=== PATIENT | female | born 1995 | race African-American/Black ===

== ENCOUNTER 2017-06-26 18:17 | Emergency (ER) | payer OTHER ==
[2017-06-26 18:42] VITALS: RESP 18
--- NOTE | 2017-06-26 20:14 | ED ---
URI HPI - General Chief Complaint: Upper Respiratory Infection Stated Complaint: FLU SYMTOMS Time Seen by Provider: 06/26/17 20:06 Source: patient, RN notes reviewed Mode of arrival: ambulatory Limitations: no limitations - History of Present Illness Initial Comments: This is a 22-year-old female who presents to the emergency department with chief complaint of flu symptoms. Patient states that she has been sick for the past 3 days. She states that she has had a runny nose, congestion and cough. She states that she has had fevers for the past 2 days. She denies any sick contacts. She states that she has a history of asthma and has been using her albuterol inhaler at home. She denies any difficulty breathing. She does state that she has been having some wheezing. Denies abdominal pain, nausea or vomiting, diarrhea or constipation, dysuria or hematuria. She states that she has had a decrease in appetite. - Related Data Previous Rx's Medication Instructions Recorded Ondansetron Odt [Zofran Odt] 4 mg PO Q8HR PRN #10 tab 02/18/15 Allergies Allergy/AdvReac Type Severity Reaction Status Date / Time No Known Allergies Allergy Verified 02/18/15 19:39 Review of Systems ROS Statement: Those systems with pertinent positive or pertinent negative responses have been documented in the HPI. ROS Other: All systems not noted in ROS Statement are negative. Past Medical History Past Medical History: Asthma History of Any Multi-Drug Resistant Organisms: None Reported Past Surgical History: Section Past Psychological History: No Psychological Hx Reported Smoking Status: Never smoker Past Alcohol Use History: None Reported Past Drug Use History: None Reported General Exam - General Exam Comments Initial Comments: General: Awake and alert, well-developed; in no apparent distress. HEENT: Head atraumatic, normocephalic. Pupils are equal, round and reactive to light. Extraocular movements intact. Oropharynx moist without erythema or exudate. Left tonsil appears enlarged. Bilateral TMs pearly without effusion. Neck: Supple. Normal ROM. Cardiovascular: Regular rate and rhythm. No murmurs, rubs or gallops. Chest symmetrical. Respiratory: Lungs clear to auscultation bilaterally. No wheezes, rales or rhonchi. Normal respiratory effort with no use of accessory muscles. Abdomen: Soft, non-tender, non-distended. No rigidity, rebound or guarding. Musculoskeletal: Normal ROM, no tenderness bilateral upper and lower extremities. Ambulating normally. Skin: [place], warm and dry without rashes or lesions. Neurological: Alert and oriented x3. CN II-XII grossly intact. Speech is fluent and answers are appropriate. No focal neuro deficits. Psychiatric: Normal mood and affect. No overt signs of depression or anxiety noted. Limitations: no limitations Course Vital Signs 06/26/17 06/26/17 18:39 20:22 Temperature 98.9 F 98.6 F Pulse Rate 115 H 108 H Respiratory 18 18 Rate Blood Pressure 149/84 126/87 O2 Sat by Pulse 99 99 Oximetry Medical Decision Making - Medical Decision Making This is a 22-year-old female who presents to the emergency department with chief complaint of flu symptoms. Patient states that she has had a runny nose, congestion and cough for the past 2 days. She reports fevers at home. On presentation, patient's vital signs are stable and she is afebrile. Influenza was negative. Chest x-ray revealed no acute abnormalities. Rapid strep was negative. Patient likely suffering from the common cold. Patient is in no acute distress and will be discharged home. Recommended symptomatic support. She is in agreement with plan and voices understanding. All questions were answered. - Lab Data Lab Results 06/26/17 06/26/17 Range/Units 18:40 20:15 Influenza Type A RNA Not Detected (Not Detectd) Influenza Type B (PCR) Not Detected (Not Detectd) Group A Strep Rapid Negative (Negative) - Radiology Data Radiology results: report reviewed Chest x-ray findings: There is no focal airspace opacity, pleural effusion or pneumothorax seen. The cardiac silhouette size is within normal limits. The osseous structures are intact. Impression: No suspicious acute infiltrate is present. Disposition Clinical Impression: Common cold Disposition: HOME SELF-CARE Condition: Good Instructions: Upper Respiratory Infection (ED) Additional Instructions: Please follow up with primary care provider within 1-2 days. Return to emergency department if symptoms should worsen or any concerns arise. Referrals: Nonstaff,Physician [Primary Care Provider] - 1-2 days Time of Disposition: 21:22
[2017-06-26 20:23] VITALS: BP 126/87; PULSE 108; TEMP 98.6
--- NOTE | 2017-06-26 20:28 | XR ---
EXAMINATION TYPE: XR chest 2V DATE OF EXAM: 06/26/2017 COMPARISON: NONE HISTORY: Cough and fever. TECHNIQUE: Frontal and lateral views of the chest are obtained. FINDINGS: There is no focal air space opacity, pleural effusion, or pneumothorax seen. The cardiac silhouette size is within normal limits. The osseous structures are intact. IMPRESSION: No suspicious acute infiltrate is present.
== END 2017-06-26 21:31 | disposition home or self-care (01) ==
LOC: EC 18:17
DX: J00 Acute nasopharyngitis [common cold] (principal)
CPT/HCPCS: 71046; 87081; 87430; 87502; 99283